=== PATIENT | male | born 1965 | race Caucasian/White ===

== ENCOUNTER → 2024-06-19 06:12 | Day surgery (SDC) | payer OTHER, SELFPAY ==
[2024-06-19 11:45] VITALS: BMI 46.8
[2024-06-19 11:46] VITALS: BP 160/119; BMI 46.8
[2024-06-19 13:25] VITALS: BP 133/88
[2024-06-19 13:30] VITALS: BP 138/94
[2024-06-19 13:45] VITALS: BP 159/111
== END ==
LOC: SDS 06:12
PROVIDERS: ATTENDING PHYSICIAN Surgery
DX: Z12.11 Encounter for screening for malignant neoplasm of colon (principal); K62.5 Hemorrhage of anus and rectum; K57.30 Diverticulosis of large intestine without perforation or abscess without bleeding; K62.1 Rectal polyp; K63.5 Polyp of colon; K64.9 Unspecified hemorrhoids; R21 Rash and other nonspecific skin eruption
CPT/HCPCS: 45380; 88305

== ENCOUNTER 2024-10-20 10:53 | Emergency (ER) | payer OTHER, SELFPAY ==
[2024-10-20 11:13] VITALS: BP 175/115
--- NOTE | 2024-10-20 11:44 | ED.GENMED ---
History of Present Illness
General
Chief Complaint: Ear Problem
Source: patient
Exam Limitations: none
Time Seen by Provider: 10/20/24 11:44
Nursing documentation reviewed up to this point in time: agreed with
History of Present Illness
History of Present Illness:
59-year-old male presenting to the emergency department today with concerns of initial cold-like symptoms over the past few days but worsening left ear pain gradually worsening since these symptoms started. Does have a history of having some ear
infections. Denies any fevers chest pain shortness of breath
Past History
Past History
ED Past Medical History: Other (Diverticulosis) and Other (Stress)
ED Past Surgical History: None
Social History
Tobacco: Smoker (Occasional)
Alcohol: None
Personal: Other (Going through divorce at this time)
Employment: Employed
Review of Systems
Review of Systems
Allergies reviewed?: Yes
All Other Systems: ROS reviewed and negative except as documented in HPI and ROS
Phy Exam
Physical Exam
Physical Exam:
GENERAL: Alert , in no apparent distress
EYE: pupils equal and reactive
NECK: Supple, no significant adenopathy.
ENT: Swollen red bulging tympanic membrane to the left ear. o/p clr, mmm.
CARDIAC: Regular rate and rhythm .
LUNGS: Clear breath sounds bilaterally, no acute respiratory distress, no wheezes/rales/rhonchi
ABDOMEN: Soft, without focal tenderness, no r/g, no cvat
NEUROLOGICAL: Alert and oriented, no focal neuro deficits
SKIN: Warm and dry, skin intact.
MUSCULOSKELETAL: No edema, well perfused.
PSYCH: Normal and appropriate interaction.
Course
Vital Signs
Initial and Last Documented VS:
Initial Vital Signs
Temp Pulse Resp BP Pulse Ox
98.5 F 98 16 175/115 98
10/20/24 11:13 10/20/24 11:13 10/20/24 11:13 10/20/24 11:13 10/20/24 11:13
Last Documented Vital Signs
Temp Pulse Resp BP Pulse Ox
98.5 F 98 16 175/115 98
10/20/24 11:13 10/20/24 11:13 10/20/24 11:13 10/20/24 11:13 10/20/24 11:13
MDM/Problems Addressed
MDM/Problems Addressed:
59-year-old male presenting to the emergency department with concerns of left-sided ear discomfort after upper respiratory infection. Patient with likely otitis media. Started on antibiotics also advised to use Flonase. Stable for outpatient
management. Of note the patient's blood pressure was elevated. He does have a history of high blood pressure he claims that he will follow this closely at home. No symptoms of hypertensive emergency at this time. He claims he can also follow-up
with a primary care doctor in regard to it as well.
*Critical Care Note
Total Time (30-74mins, 75-104mins- exclusive of procedures): Not Applicable
ED Attending Note
-
Portions of this chart may have been created with voice recognition software.� Occasional wrong word or��sound alike� substitutions may have occurred due to the inherent limitations of voice recognition software.
Discharge Plan
Departure
Patient Disposition: Home (Routine Discharge)
Date of Disposition: 10/20/24
Time of Disposition: 11:46
Patient with high blood pressure during this ER visit?: Yes
Condition: Good
Covid-19: Not Applicable
Discharge Problem:
Otitis media
Instructions: Serous Otitis Media (DC), BLOOD PRESSURE
Prescriptions:
New
amoxicillin 875 mg tablet
875 mg PO BID 7 Days Qty: 14 0RF
No Action
tamsulosin 0.4 MG capsule
0.4 mg PO DAILY
valsartan 80 mg Tablet
80 mg PO DAILY
tadalafil [Cialis] 2.5 mg Tablet
5 mg
Activity Restrictions/Additional Instructions:
You came to the emergency department with otitis media. Please take the prescribed antibiotics stay hydrated and use Flonase. Your blood pressure was elevated please follow close with the primary care doctor and monitor this number as an
outpatient.
Interventions
Interventions:
*Risk Screen - Suicide Last Done: 10/20/24 11:13
*General Assessment Last Done: 10/20/24 11:13
*Neglect/Abuse Screening Last Done: 10/20/24 11:13
Discharge Date and Time
Print Language: YAKUT
== END 2024-10-20 14:01 | disposition home or self-care (01) ==
LOC: EMR 10:53
PROVIDERS: EMERGENCY PHYSICIAN Emergency Medicine; FAMILY PHYSICIAN Family Medicine
DX: H66.92 Otitis media, unspecified, left ear (principal); I10 Essential (primary) hypertension; F17.200 Nicotine dependence, unspecified, uncomplicated
CPT/HCPCS: 99282